=== PATIENT | male | born 1955 | race African-American/Black ===

== ENCOUNTER 2018-12-07 12:58 | Emergency (ER) | payer MEDICAID ==
[~2018-12-07] VITALS: Ht 177.8 cm; Wt 165.0 kg
[~2018-12-07 12:58] MED LIST: ATOR10TA; FURO-152; METF-414
[2018-12-07] MEDS ORDERED: MORPHINE SULFATE 10 MG/ML CPJ IM ONE (16:30)
[2018-12-07] MEDS ORDERED: ONDANSETRON 4MG ODT PO ONE (16:30)
[2018-12-07] MEDS ORDERED: KETOROLAC 60MG/2ML VIAL IM ONE (16:30)
[2018-12-07 18:14] VITALS: BP 158/84
== END 2018-12-07 18:14 | disposition home or self-care (01) ==
LOC: ER 12:58
DX: M25.561 Pain in right knee (principal); M10.9 Gout, unspecified; I11.0 Hypertensive heart disease with heart failure; I50.9 Heart failure, unspecified; M54.9 Dorsalgia, unspecified; G89.29 Other chronic pain; E11.40 Type 2 diabetes mellitus with diabetic neuropathy, unspecified
CPT/HCPCS: 73562; 96372; 99283; J1885; J2270; Q0162

== ENCOUNTER 2019-04-18 12:46 | Inpatient (IN) | payer MEDICAID ==
[~2019-04-18] VITALS: Ht 180.3 cm; Wt 165.6 kg
[2019-04-18] MEDS ORDERED: FUROSEMIDE 40MG/4ML VIAL IV ONE (13:30)
[2019-04-18] MEDS ORDERED: ASPIRIN 81MG TABLET PO ONE (13:30)
[2019-04-18] MEDS ORDERED: NITROGLYCERIN OINT 1GM/INCH UDPKT TD ONE (13:30)
[2019-04-18 13:39] LABS: BASOPHILS % 0.1 % (0.0-2.0); EOSINOPHILS % 0.7 % (0.0-5.0); HEMATOCRIT. 38.7 % (42.0-52.0); HEMOGLOBIN. 12.8 g/dL (14.0-18.0); LYMPHOCYTES % 16.2 % (20.0-50.0); MEAN CORPUSCULAR HEMOGLOBIN 31.5 pg (28.0-32.0); MEAN CORPUSCULAR VOLUME 94.9 fL (80.0-94.0); MEAN PLATELET VOLUME 7.1 fl (7.4-10.4); MONOCYTES % 4.2 % (2.0-8.0); NEUTROPHILS % 78.8 % (40.0-76.0); PLATELET 153 x1000/uL (130-400); RED BLOOD CELL COUNT 4.08 mill/uL (4.7-6.1); RED CELL DISTRIBUTION WIDTH 16.2 % (11.6-14.6)
[2019-04-18 13:40] LABS: CHLORIDE 102 mEq/L (98-107)
[2019-04-18 13:41] LABS: PARTIAL THROMBOPLASTIN TIME 25.4 sec (23.4-31.0)
[2019-04-18] MEDS ORDERED: CLONIDINE 0.1MG TABLET PO PRN ×2 (20:15→22:15)
[2019-04-18 20:20] VITALS: BP 143/87
[2019-04-18] MEDS ORDERED: ALLO100T MT (21:51)
[2019-04-18] MEDS ORDERED: NITR0.4T49 SL (21:51)
[2019-04-18] MEDS ORDERED: ASPI-1393 MT (21:51)
[2019-04-18] MEDS ORDERED: METO25TA6 PO (21:51)
[2019-04-18] MEDS ORDERED: HYDROCODONE/ACETAMINOPHEN 5/325MG TABLET PO PRN (22:15)
[2019-04-18] MEDS ORDERED: MAGNESIUM/ALUMINUM HYDROXIDE/SIMETHICONE 30ML UDC PO PRN (22:15)
[2019-04-18] MEDS ORDERED: IPRATROPIUM/ALBUTEROL 0.5-3(2.5)MG/3ML NEB INH PRN (22:15)
[2019-04-18] MEDS ORDERED: ACETAMINOPHEN 325MG TABLET PO PRN (22:15)
[2019-04-18] MEDS ORDERED: ONDANSETRON HCL 4MG/2ML INJ IV PRN (22:15)
[2019-04-18] MEDS ORDERED: LORAZEPAM 0.5MG TABLET PO PRN (22:15)
[2019-04-18] MEDS: FUROSEMIDE 40MG/4ML VIAL IVP SCH (22:59)
[2019-04-19] VITALS: BP 148/93
[2019-04-19 01:38] LABS: *AMPHETAMINES SCREEN URINE NEGATIVE (NEGATIVE); *BARBITURATES SCREEN URINE NEGATIVE (NEGATIVE); *BENZODIAZEPINES SCREEN URINE NEGATIVE (NEGATIVE); *COCAINE SCREEN URINE NEGATIVE (NEGATIVE); CANNABINOID URINE SCREEN NEGATIVE (NEGATIVE); METHADONE URINE SCREEN NEGATIVE (NEGATIVE); OPIATES URINE SCREEN NEGATIVE (NEGATIVE); PHENCYCLIDINE URINE SCREEN NEGATIVE (NEGATIVE)
[2019-04-19 04:00] VITALS: BP 145/87
[2019-04-19 06:57] LABS: BASOPHILS % 0.2 % (0.0-2.0); EOSINOPHILS % 0.7 % (0.0-5.0); HEMATOCRIT. 38.6 % (42.0-52.0); HEMOGLOBIN. 13.1 g/dL (14.0-18.0); LYMPHOCYTES % 18.8 % (20.0-50.0); MEAN CORPUSCULAR HEMOGLOBIN 32.3 pg (28.0-32.0); MEAN CORPUSCULAR VOLUME 95.2 fL (80.0-94.0); MEAN PLATELET VOLUME 7.5 fl (7.4-10.4); MONOCYTES % 6.3 % (2.0-8.0); PLATELET 169 x1000/uL (130-400); RED BLOOD CELL COUNT 4.05 mill/uL (4.7-6.1)
[2019-04-19 07:53] LABS: CHLORIDE 98 mEq/L (98-107)
[2019-04-19 08:02] LABS: PHOSPHORUS 4.2 mg/dL (2.5-4.9)
[2019-04-19] MEDS: FUROSEMIDE 40MG/4ML VIAL IVP SCH (09:22)
[2019-04-19] MEDS ORDERED: LOSARTAN POTASSIUM 50 MG TABLET PO SCH (12:45)
[2019-04-19 13:41] VITALS: BP 143/78
[2019-04-19] MEDS ORDERED: METOPROLOL TARTRATE 25MG TABLET PO SCH (21:00)
[2019-04-19] MEDS ORDERED: AMLODIPINE 5MG TABLET PO SCH (21:00)
== END 2019-04-19 14:59 | disposition home or self-care (01) | DRG 194 ==
LOC: ER 12:46 → 6WST 16:25 → EDBEDREQ 16:29 → ENRESERV 18:33
PROVIDERS: ADMIT Internal Medicine; ATTEND Internal Medicine
DX: I11.0 Hypertensive heart disease with heart failure (principal); E66.01 Morbid (severe) obesity due to excess calories; I50.33 Acute on chronic diastolic (congestive) heart failure; E78.00 Pure hypercholesterolemia, unspecified; E11.9 Type 2 diabetes mellitus without complications; E78.5 Hyperlipidemia, unspecified; G47.33 Obstructive sleep apnea (adult) (pediatric); M10.9 Gout, unspecified; Z96.653 Presence of artificial knee joint, bilateral; Z79.84 Long term (current) use of oral hypoglycemic drugs; Z79.899 Other long term (current) drug therapy; Z87.891 Personal history of nicotine dependence; Z68.43 Body mass index [BMI] 50.0-59.9, adult; Z83.3 Family history of diabetes mellitus; Z82.49 Family history of ischemic heart disease and other diseases of the circulatory system; Z91.19 Patient's noncompliance with other medical treatment and regimen
CPT/HCPCS: 36415; 71045; 80048; 80305; 82962; 83735; 83880; 84100; 84484; 85379; 93005; 93306; 93970; 94640; 99285; J1940; J7620